=== PATIENT | female | born 1930 | race American Indian/Alaskan Native ===

== ENCOUNTER 2017-08-30 10:44 | Emergency (ER) | payer MEDICARE, OTHER ==
[2017-08-30 10:45] VITALS: BMI 26.0
[2017-08-30 11:27] VITALS: BP 174/78; PULSE 84; RESP 16; TEMP 98.7; O2SAT 98
--- NOTE | 2017-08-30 12:23 | ED PDOC ---
Arrival/HPI - General Chief Complaint: Trauma Time Seen by Provider: 08/30/17 11:31 Historian: Patient - History of Present Illness Narrative History of Present Illness (Text): 08/30/17 12:05 A 87 year old female, whose past medical history includes arthritis, asthma, chronic back pain, and hypertension, presents to the emergency department complaining of buttock pain and lower back pain. Patient reports she was wearing slippers, and slipped fell backwards on wet floor. Patient injured lower back and buttock. No other complaints mentioned. Patient normally ambulates with cane. Pain Management: Dr. Eduardo Roblero Associated Symptoms (Text): 08/30/17 12:54 Chronic low back pain on chronic narcotic pain medication from [employer]. 2 days prior to arrival suffered a mechanical fall injuring her lower back. She is able to ambulate. No abdominal pain nausea vomiting or diarrhea. No genitourinary symptoms. No numbness tingling or paresthesias. No weakness. Past Medical History - Provider Review Nursing Documentation Reviewed: Yes - Infectious Disease Hx of Infectious Diseases: None - Cardiac Hx Hypertension: Yes - Pulmonary Hx Asthma: Yes - Neurological Hx Neurological Disorder: No - HEENT Hx HEENT Disorder: No - Renal Hx Renal Disorder: No - Endocrine/Metabolic Hx Endocrine Disorders: No - Hematological/Oncological Hx Blood Disorders: No - Integumentary Hx Dermatological Disorder: No - Musculoskeletal/Rheumatological Hx Arthritis: Yes - Gastrointestinal Hx Gastrointestinal Disorders: No - Genitourinary/Gynecological Hx Genitourinary Disorders: No - Psychiatric Hx Psychophysiologic Disorder: No Hx Substance Use: No - Surgical History Hx Coronary Stent: Yes - Anesthesia Hx Anesthesia: Yes Hx Anesthesia Reactions: No Family/Social History - Physician Review Nursing Documentation Reviewed: Yes Family/Social History: No Known Family HX Smoking Status: Never Smoked Hx Alcohol Use: Yes (social) Frequency of alcohol use: Socially Hx Substance Use: No Allergies/Home Meds Allergies/Adverse Reactions: Allergies No Known Allergies Allergy (Verified 08/30/17 11:27) Home Medications: Home Meds Medication Instructions Recorded Confirmed Unobtainable 08/30/17 08/30/17 Review of Systems - Physician Review All systems were reviewed & negative as marked: Yes - Review of Systems Constitutional: absent: Other (no other physical complaints ) Musculoskeletal: Back Pain (lower back pain), Other (buttock pain) Physical Exam Vital Signs Reviewed: Yes Vital Signs Temp Pulse Resp BP Pulse Ox 08/30/17 11:23 98.7 F 84 16 174/78 H 98 Temperature: Afebrile Blood Pressure: Hypertensive Pulse: Regular Respiratory Rate: Normal Appearance: Positive for: Well-Appearing, Uncomfortable Pain Distress: Mild Mental Status: Positive for: Alert and Oriented X 3 - Systems Exam Head: Present: Atraumatic, Normocephalic Pupils: Present: PERRL Extroacular Muscles: Present: EOMI Conjunctiva: Present: Normal Mouth: Present: Moist Mucous Membranes Neck: Present: Normal Range of Motion Respiratory/Chest: Present: Clear to Auscultation, Good Air Exchange. No: Respiratory Distress, Accessory Muscle Use Cardiovascular: Present: Regular Rate and Rhythm, Normal S1, S2. No: Murmurs Abdomen: Present: Normal Bowel Sounds. No: Tenderness, Distention, Peritoneal Signs Back: Present: Paraspinal Tenderness, Other (lumbar spinal tenderness). No: CVA Tenderness, Pain with Leg Raise Upper Extremity: Present: Normal Inspection. No: Cyanosis, Edema Lower Extremity: Present: Tenderness (buttock tenderness) Neurological: Present: GCS=15, CN II-XII Intact, Speech Normal, Motor Func Grossly Intact, Normal Cerebellar Funct, Gait Normal Skin: Present: Warm, Dry, Normal Color. No: Rashes Psychiatric: Present: Alert, Oriented x 3, Normal Insight, Normal Concentration Medical Decision Making ED Course and Treatment: 08/30/17 12:10 Impression: 87 year old female with buttock pain and lower back pain. Physical exam shows tenderness to buttock and lumbar spine. Plan: -- Lumbar Spinal X-Ray -- Pelvis X-ray -- Reassess and disposition Prior Visits: Notes and results from previous visits were reviewed. Patient was last seen in the emergency department on 04/02/2016 for syncopal episode. Patient was admitted. Progress Notes: - RAD Interpretation Radiology Orders: 08/30/17 12:10 PELVIS ONE VIEW [RAD] Stat 08/30/17 12:11 LS SPINE WITH OBL > 18 YRS OLD [RAD] Stat Pelvis shows severe right hip DJD with no fracture or dislocation. Lumbosacral spine shows previous kyphoplasty. No acute fracture or dislocation. Endo Tech: ED Physician - Scribe Statement The provider has reviewed the documentation as recorded by the Bruce Jauregui Provider Scribe Attestation: All medical record entries made by the Bruce were at my direction and personally dictated by me. I have reviewed the chart and agree that the record accurately reflects my personal performance of the history, physical exam, medical decision making, and the department course for this patient. I have also personally directed, reviewed, and agree with the discharge instructions and disposition. Disposition/Present on Arrival - Present on Arrival Any Indicators Present on Arrival: No History of DVT/PE: No History of Uncontrolled Diabetes: No Urinary Catheter: No History of Decub. Ulcer: No History Surgical Site Infection Following: None - Disposition Have Diagnosis and Disposition been Completed?: Yes Diagnosis: Back contusion, Contusion of buttock Disposition: HOME/ ROUTINE Disposition Time: 12:57 Patient Plan: Discharge Condition: GOOD Discharge Instructions (ExitCare): Acute Low Back Pain (ED), Contusion in Adults (ED) Additional Instructions: Rest and moist heat. Follow-up with PMD. Follow up in the ER as needed. Continue current pain medications. Forms: [employer] (B[place]ladeshi)
--- NOTE | 2017-08-30 13:50 | RAD ---
PROCEDURE: Radiographs of the pelvis. HISTORY: trauma COMPARISON: None. FINDINGS: BONES: Pelvic Bones: Unremarkable. Hips: There is severe degeneration in the right hip. There is flattening of the femoral head and loss of the joint space. There is mild degeneration in the left hip with joint space narrowing JOINTS: Sacroiliac Joints: Unremarkable. Pubic Symphysis: Unremarkable. OTHER FINDINGS: None. IMPRESSION: Severe degenerative changes in the right hip.
--- NOTE | 2017-08-30 13:53 | RAD ---
PROCEDURE: Radiographs of the Lumbar Spine. HISTORY: trauma COMPARISON: No prior. FINDINGS: BONES: Normal alignment. No listhesis. No fracture. DISC SPACES: Unremarkable. OTHER FINDINGS: There has been a vertebroplasty on the right side of L4. IMPRESSION: No acute changes
== END 2017-08-30 13:56 | disposition home or self-care (01) ==
LOC: ED 10:44
DX: S30.0XXA Contusion of lower back and pelvis, initial encounter (principal); W01.0XXA Fall on same level from slipping, tripping and stumbling without subsequent striking against object, initial encounter; I10 Essential (primary) hypertension
CPT/HCPCS: 72110; 72170; 96372; 99281; J1885